=== PATIENT | male | born 1985 | race African-American/Black ===

== ENCOUNTER 2016-06-17 17:33 | Emergency (ER) | payer SELFPAY ==
[~2016-06-17] VITALS: Ht 177.8 cm; Wt 88.5 kg
[~2016-06-17 17:33] MED LIST: BENZ1TAB22 PO; OLAN5TAB3 PO
[2016-06-17] MEDS ORDERED: KETOROLAC TROMETHAMINE INJ 60 MG/2 ML VIAL IM ONE (18:00)
[2016-06-17] MEDS ORDERED: KETOROLAC TROMETHAMINE INJ 30 MG/ML VIAL ONE (18:52)
[2016-06-17 20:45] VITALS: BP 118/69
== END 2016-06-17 20:46 | disposition home or self-care (01) ==
LOC: ER 17:36
DX: S82.842A Displaced bimalleolar fracture of left lower leg, initial encounter for closed fracture (principal); S82.62XA Displaced fracture of lateral malleolus of left fibula, initial encounter for closed fracture; S82.61XA Displaced fracture of lateral malleolus of right fibula, initial encounter for closed fracture; F20.9 Schizophrenia, unspecified; F17.200 Nicotine dependence, unspecified, uncomplicated; X58.XXXA Exposure to other specified factors, initial encounter; Y93.39 Activity, other involving climbing, rappelling and jumping off; Y92.89 Other specified places as the place of occurrence of the external cause; Y99.9 Unspecified external cause status
CPT/HCPCS: 29505; 73564 ×2; 73610 ×2; 96372; 99284; A4606; J1885; Z7610